=== PATIENT | male | born 1950 | race Caucasian/White ===

== ENCOUNTER 2017-01-02 11:57 | Emergency (ER) | payer MEDICARE, OTHER ==
[~2017-01-02] VITALS: Ht 180.3 cm; Wt 116.0 kg
[2017-01-02 12:08] VITALS: BP 178/83; PULSE 75; RESP 18; TEMP 97.5; O2SAT 97
--- NOTE | 2017-01-02 12:26 | PD ---
HPI Chief Complaint: Diabetic Time Seen by Provider: 12:15 Travel History International Travel<30 days: No Contact w/Intl Traveler<30days: No Traveled to known affect area: No History of Present Illness HPI Patient comes in from assisted living facility where he was reportedly found to be more tired than normal and had blood sugar of 68. Patient was reportedly given orange juice and blood sugar went up to 120. Denies anything making it worse. Patient denies any complaints. Denies headache, change in vision, chest pain, shortness of breath, abdominal pain, nausea, vomiting, loss or change in bowel or bladder, new numbness or tingling anywhere, new weakness, fevers, or other medical concerns. Patient denies feeling more tired than normal. Patient has a history of hemiplegia, intracranial hemorrhage, encephalopathy, diabetes, heart failure, fatigue, dysphagia, aphasia, hypertension, anemia, hyperlipidemia, and depression. PFSH Past Medical History Cerebrovascular Accident: Yes Diabetes: Yes Social History Alcohol Use: No Tobacco Use: No Substance Use: No Allergies-Medications (Allergen,Severity, Reaction): Coded Allergies: No Known Allergies (Unverified , 01/02/17) Reported Meds & Prescriptions Reported Meds & Active Scripts Active Reported Glipizide 5 Mg Tab 5 Mg PO DAILY Take 30 minutes before a meal Citalopram (Citalopram Hydrobromide) 20 Mg Tab 20 Mg PO DAILY Atorvastatin (Atorvastatin Calcium) 20 Mg Tab 20 Mg PO HS Tylenol (Acetaminophen) 325 Mg Tab 325 Mg PO Q6H PRN Trazodone (Trazodone HCl) 50 Mg Tab 25 Mg PO HS PRN Robitussin Peak Cold Dm 100-10 mg/5Ml (Dextromethorphan-Guaifenesin) 100 Mg-10 Mg/5 Ml Syp 10 Ml PO Q6HR PRN Melatonin 5 Mg Tab 3 Mg PO HS Hydroxyzine HCl 25 Mg Tab 25 Mg PO Q6HR PRN Clotrimazole Topical (Clotrimazole) 1% Soln 1 Applic TOPICAL BID PRN Sucralfate Liq (Sucralfate) 1 Gram/10 Ml Esther 10 Ml PO QID on empty stomach Humalog Inj (Insulin Human Lispro) 1,000 Unit/10 Ml Vial 1-9 Units SQ ACHS SLIDING SCALE Max dose at bedtime:( )units; sugars< 70,(0)units; sugars 150-199,(1)unit; sugars 200-249,(3)units; sugars 250-299,(5)units; sugars 300-349,(7)units; sugars more than 349,(9)units. Humalog Inj (Insulin Human Lispro) 1,000 Unit/10 Ml Vial 5 Units SQ TIDAC Neurontin (Gabapentin) 100 Mg Cap 100 Mg PO BID Metoprolol Tartrate 50 Mg Tab 50 Mg PO BID Ferrous Sulfate 325 Mg (65 Mg Iron) Tablet 325 Mg PO BIDPC Colace (Docusate Sodium) 100 Mg Capsule 100 Mg PO BID Verapamil ER 24 HR (Verapamil HCl) 240 Mg Tab 240 Mg PO DAILY Levemir Inj (Insulin Detemir) 1,000 unit/ 10 ML Vial 20 Units SQ HS Do not mix with any other Insulin. Tamsulosin (Tamsulosin HCl) 0.4 Mg Cap 0.4 Mg PO HS Review of Systems Except as stated in HPI: all other systems reviewed are Neg Physical Exam Narrative GENERAL: Well-developed, overly nourished, in no acute distress, and non-ill appearing. SKIN: Focused skin assessment warm and dry. HEAD: Atraumatic. Normocephalic. EYES: Pupils equal and round. EOMI. No scleral icterus. No injection or drainage. ENT: No nasal bleeding or discharge. Mucous membranes pink and moist. NECK: Trachea midline. Supple. No nuclear rigidity. CARDIOVASCULAR: Regular rate and rhythm. No murmur appreciated. RESPIRATORY: No accessory muscle use. No respiratory distress. Clear to auscultation. Breath sounds equal bilaterally. GASTROINTESTINAL: Abdomen soft, non-tender, nondistended, and no guarding. Hepatic and splenic margins not palpable. Normal bowel sounds 4. No pulsatile mass. MUSCULOSKELETAL: No obvious deformities. No clubbing. No cyanosis. No edema. NEUROLOGICAL: Awake and alert. No obvious cranial nerve deficits. Motor grossly within normal limits. Normal speech. PSYCHIATRIC: Appropriate mood and affect; insight and judgment normal. Data Data Last Documented VS Vital Signs Date Time Temp Pulse Resp B/P (MAP) Pulse Ox O2 Delivery O2 Flow Rate FiO2 01/02/17 14:00 74 17 150/77 (101) 96 Room Air 01/02/17 12:08 97.5 Orders Orders Basic Metabolic Panel (Bmp) (01/02/17 12:16) Complete Blood Count With Diff (01/02/17 12:16) Urinalysis - C+S If Indicated (01/02/17 12:16) Blood Glucose (01/02/17 12:16) Ecg Monitoring (01/02/17 12:16) Iv Access Insert/Monitor (01/02/17 12:16) Oximetry (01/02/17 12:16) Sodium Chloride 0.9% Flush (Ns Flush) (01/02/17 12:30) Magnesium (Mg) (01/02/17 12:16) Labs Laboratory Tests Test 01/02/17 13:20 01/02/17 14:00 White Blood Count 10.7 TH/MM3 Red Blood Count 4.03 MIL/MM3 Hemoglobin 11.7 GM/DL Hematocrit 36.1 % Mean Corpuscular Volume 89.6 FL Mean Corpuscular Hemoglobin 29.1 PG Mean Corpuscular Hemoglobin Concent 32.5 % Red Cell Distribution Width 14.2 % Platelet Count 237 TH/MM3 Mean Platelet Volume 9.0 FL Neutrophils (%) (Auto) 78.3 % Lymphocytes (%) (Auto) 11.7 % Monocytes (%) (Auto) 7.9 % Eosinophils (%) (Auto) 1.6 % Basophils (%) (Auto) 0.5 % Neutrophils # (Auto) 8.4 TH/MM3 Lymphocytes # (Auto) 1.3 TH/MM3 Monocytes # (Auto) 0.9 TH/MM3 Eosinophils # (Auto) 0.2 TH/MM3 Basophils # (Auto) 0.1 TH/MM3 CBC Comment DIFF FINAL Differential Comment Blood Urea Nitrogen 49 MG/DL Creatinine 1.52 MG/DL Random Glucose 120 MG/DL Calcium Level 8.7 MG/DL Magnesium Level 2.4 MG/DL Sodium Level 139 MEQ/L Potassium Level 4.9 MEQ/L Chloride Level 107 MEQ/L Carbon Dioxide Level 27.1 MEQ/L Anion Gap 5 MEQ/L Estimat Glomerular Filtration Rate 46 ML/MIN Urine Color LIGHT-YELLOW Urine Turbidity CLEAR Urine pH 5.5 Urine Specific [place] 1.012 Urine Protein TRACE mg/dL Urine Glucose (UA) NEG mg/dL Urine Ketones NEG mg/dL Urine Occult Blood NEG Urine Nitrite NEG Urine Bilirubin NEG Urine Urobilinogen LESS THAN 2.0 MG/DL Urine Leukocyte Esterase NEG Urine WBC 1 /hpf Urine Mucus FEW /lpf Microscopic Urinalysis Comment CATH-CULT NOT IND MDM Medical Decision Making Medical Screen Exam Complete: Yes Emergency Medical Condition: Yes Interpretation(s) Laboratory Tests Test 01/02/17 13:20 01/02/17 14:00 White Blood Count 10.7 TH/MM3 (4.0-11.0) Red Blood Count 4.03 MIL/MM3 (4.50-5.90) Hemoglobin 11.7 GM/DL (13.0-17.0) Hematocrit 36.1 % (39.0-51.0) Mean Corpuscular Volume 89.6 FL (80.0-100.0) Mean Corpuscular Hemoglobin 29.1 PG (27.0-34.0) Mean Corpuscular Hemoglobin Concent 32.5 % (32.0-36.0) Red Cell Distribution Width 14.2 % (11.6-17.2) Platelet Count 237 TH/MM3 (150-450) Mean Platelet Volume 9.0 FL (7.0-11.0) Neutrophils (%) (Auto) 78.3 % (16.0-70.0) Lymphocytes (%) (Auto) 11.7 % (9.0-44.0) Monocytes (%) (Auto) 7.9 % (0.0-8.0) Eosinophils (%) (Auto) 1.6 % (0.0-4.0) Basophils (%) (Auto) 0.5 % (0.0-2.0) Neutrophils # (Auto) 8.4 TH/MM3 (1.8-7.7) Lymphocytes # (Auto) 1.3 TH/MM3 (1.0-4.8) Monocytes # (Auto) 0.9 TH/MM3 (0-0.9) Eosinophils # (Auto) 0.2 TH/MM3 (0-0.4) Basophils # (Auto) 0.1 TH/MM3 (0-0.2) CBC Comment DIFF FINAL Differential Comment Blood Urea Nitrogen 49 MG/DL (7-18) Creatinine 1.52 MG/DL (0.60-1.30) Random Glucose 120 MG/DL (74-106) Calcium Level 8.7 MG/DL (8.5-10.1) Magnesium Level 2.4 MG/DL (1.5-2.5) Sodium Level 139 MEQ/L (136-145) Potassium Level 4.9 MEQ/L (3.5-5.1) Chloride Level 107 MEQ/L (98-107) Carbon Dioxide Level 27.1 MEQ/L (21.0-32.0) Anion Gap 5 MEQ/L (5-15) Estimat Glomerular Filtration Rate 46 ML/MIN (>89) Urine Color LIGHT-YELLOW (YELLW/STRAW) Urine Turbidity CLEAR (CLEAR) Urine pH 5.5 (5.0-8.5) Urine Specific [place] 1.012 (1.002-1.035) Urine Protein TRACE mg/dL (NEG-TRACE) Urine Glucose (UA) NEG mg/dL (NEG) Urine Ketones NEG mg/dL (NEG) Urine Occult Blood NEG (NEG) Urine Nitrite NEG (NEG) Urine Bilirubin NEG (NEG) Urine Urobilinogen LESS THAN 2.0 MG/DL (LESS Urine Leukocyte Esterase NEG (NEG) Urine WBC 1 /hpf (0-5) Urine Mucus FEW /lpf (OCC) Microscopic Urinalysis Comment CATH-CULT NOT IND Differential Diagnosis Anemia, electrolyte abnormality, UTI, other Narrative Course Patient's BUN and creatinine appear unchanged from his outpatient labs sent with him from last month. This appears to patient lives and can follow up outpatient with this. Patient in no obvious distress upon re-evaluation. All pertinent laboratory result(s) discussed with patient. Symptoms most likely secondary to patient's slightly low blood sugar. Discussed patient with Dr. Stephens prior to discharge, who is and agreement with plan of care and disposition. Any questions /concerns in reference to patient diagnosis/condition discussed and clarified prior to patient's discharge. Reinforced sheer importance of close follow up with patient's primary physician or primary care clinic. Instructed patient to return to ED immediately, if symptoms return/worsen. Patient showed understanding of above instructions. Further instructions and recommendations were detailed in discharge paperwork. Patient left without difficulty out of ED at discharge. Diagnosis Primary Impression: Hypoglycemia Patient Instructions: General Instructions, Hypoglycemia in a Person with Diabetes (GEN) Departure Forms: Tests/Procedures Additional Instructions: Follow-up with your primary care physician this week for reevaluation. Return to the emergency department if symptoms get worse. Disposition: 01 DISCHARGE HOME Condition: Stable Jaun Martínez Jan 02, 2017 12:26
[2017-01-02] MEDS ORDERED: SODIUM CHLORIDE 0.9% FLUSH 5 ML FLUSH IV FLUSH PRN (12:30)
[2017-01-02 13:26] VITALS: O2SAT 97
[2017-01-02] MEDS ORDERED: COLA100C PO (13:51)
[2017-01-02] MEDS ORDERED: FERR325T8 PO (13:51)
[2017-01-02] MEDS ORDERED: CITA20TA4 PO (13:51)
[2017-01-02] MEDS ORDERED: HYDR-3133 PO (13:51)
[2017-01-02] MEDS ORDERED: VERA1TAB17 PO (13:51)
[2017-01-02] MEDS ORDERED: METO50TA PO (13:51)
[2017-01-02] MEDS ORDERED: ATOR20TA15 PO (13:51)
[2017-01-02] MEDS ORDERED: ROBISYP8 PO (13:51)
[2017-01-02] MEDS ORDERED: TYLE325T PO (13:51)
[2017-01-02] MEDS ORDERED: GLIP5TAB8 PO (13:51)
[2017-01-02] MEDS ORDERED: TAMS0.4C4 PO (13:51)
[2017-01-02] MEDS ORDERED: NEUR100C PO (13:51)
[2017-01-02] MEDS ORDERED: MELA5TAB15 PO (13:51)
[2017-01-02] MEDS ORDERED: HUMALOG SQ ×2 (13:51)
[2017-01-02] MEDS ORDERED: LEVEMIR SQ (13:51)
[2017-01-02] MEDS ORDERED: CLOTR1%T TOPICAL (13:51)
[2017-01-02] MEDS ORDERED: SUCR1S PO (13:51)
[2017-01-02] MEDS ORDERED: TRAZ50TA12 PO (13:51)
[2017-01-02 13:58] LABS: AUTOMATED NEUTROPHIL # 8.4 TH/MM3 (1.8-7.7); BASOPHIL # 0.1 TH/MM3 (0-0.2); BASOPHIL % 0.5 % (0.0-2.0); EOSINOPHIL # 0.2 TH/MM3 (0-0.4); EOSINOPHIL % 1.6 % (0.0-4.0); HEMATOCRIT 36.1 % (39.0-51.0); HEMO FLAGS DIFF FINAL; LYMPH % 11.7 % (9.0-44.0); LYMPHOCYTE # 1.3 TH/MM3 (1.0-4.8); MEAN CELL VOLUME 89.6 FL (80.0-100.0); MEAN CORPUSCULAR HEMOGLOBIN 29.1 PG (27.0-34.0); MEAN CORPUSCULAR HGB CONC 32.5 % (32.0-36.0); MONO % 7.9 % (0.0-8.0); NEUT % 78.3 % (16.0-70.0); PLATELET COUNT 237 TH/MM3 (150-450); RED BLOOD COUNT 4.03 MIL/MM3 (4.50-5.90); RED CELL DISTRIBUTION WIDTH 14.2 % (11.6-17.2); WHITE BLOOD COUNT 10.7 TH/MM3 (4.0-11.0)
[2017-01-02 14:00] VITALS: BP 150/77; PULSE 74; RESP 17; O2SAT 96
[2017-01-02 14:19] LABS: BLOOD, URINE NEG (NEG); GLUCOSE,URINE NEG (NEG); KETONE, URINE NEG (NEG); MUCUS URINE FEW /lpf (OCC); NITRITE,URINE NEG (NEG); PH, URINE 5.5 (5.0-8.5); URINE COLOR LIGHT-YELLOW (YELLW/STRAW)
[2017-01-02 14:22] LABS: COMMENT (UR) CATH-CULT NOT IND; CULTURE IF INDICATED CATH CULTURE NOT IND
[2017-01-02 14:23] LABS: BICARBONATE 27.1 MEQ/L (21.0-32.0)
[2017-01-02 14:32] LABS: MAGNESIUM 2.4 MG/DL (1.5-2.5); POTASSIUM 4.9 MEQ/L (3.5-5.1)
[2017-01-02 16:00] VITALS: BP 141/96; PULSE 80; RESP 22; O2SAT 96
[2017-01-02 17:30] VITALS: BP 160/77; PULSE 80; RESP 20; O2SAT 96
== END 2017-01-02 18:00 | disposition home or self-care (01) ==
LOC: NEPE 11:57
DX: E11.649 Type 2 diabetes mellitus with hypoglycemia without coma (principal); I11.0 Hypertensive heart disease with heart failure; E78.5 Hyperlipidemia, unspecified; D64.9 Anemia, unspecified
CPT/HCPCS: 80048; 81001; 83735; 85025; 99283